=== PATIENT | male | born 1960 | race Caucasian/White ===

== ENCOUNTER 2016-06-03 17:25 | Inpatient (IN) | payer MEDICAID ==
[~2016-06-03] VITALS: Ht 175.3 cm; Wt 84.4 kg
[~2016-06-03 17:25] MED LIST: AMLO10TA2 PO; ASPI81CH43 GT; ENAL-3 PO; GABA300C8 PO; GLIP-115 PO; METF-312 PO; PROPANOLOL PO
[2016-06-03 18:13] LABS: Basophils # (auto) 0.1 uL; Basophils % (auto) 1.5 % (0.0-2.0); DEFINITIVE VIEW TRANSMISSION; Eosinophils # (auto) 0.1 uL; Eosinophils % (auto) 1.6 % (0.0-7.0); Hematocrit 35.6 % (41.0-53.0); Lymphocytes # (auto) 0.7 uL; Lymphocytes % (auto) 8.2 % (10.0-50.0); Mean Corpuscular Hemoglobin 23.7 pg (28.0-32.0); Mean Corpuscular Hgb Conc. 30.8 g/dL (32.0-36.0); Mean Platelet Volume 11.7 fL (7.4-10.4); Monocytes # (auto) 0.9 uL; Monocytes % (auto) 11.6 % (0.0-12.0); Neutrophils # (auto) 6.2 uL; Neutrophils % (auto) 77.1 % (37.0-80.0); Platelet Count (auto) 77 10^3/uL (140-450); SUSPECT VIEW TRANSMISSION; White Blood Cell 8.1 10^3/uL (4.4-10.8)
[2016-06-03 18:25] LABS: Red Cell Distribution Width 25.1 % (11.6-16.0)
[2016-06-03 18:40] LABS: Albumin 2.7 g/dL (3.4-5.0); Alkaline Phosphatase 123 U/L (45-117); Anion Gap 11 (5-15); Aspartate Aminotransferase 38 U/L (15-37); BUN/Creatinine Ratio 19.8; Bilirubin, Total 5.9 mg/dL (0.2-1.0); Blood Urea Nitrogen 16 mg/dL (7-18); Calcium 8.6 mg/dL (8.5-10.1); Carbon Dioxide 21 mmol/L (21-32); Chloride 105 mmol/L (98-107); GFR African American 128 mL/min; GFR Non-African American 106 mL/min; Glucose 273 mg/dL (74-106); Magnesium 2.1 mg/dL (1.6-2.6); Potassium 4.1 mmol/L (3.5-5.1); Sodium 137 mmol/L (136-145); Total Protein 6.9 g/dL (6.4-8.2)
[2016-06-03 19:40] LABS: Anisocytosis Moderate; Hypochromia Moderate; Large Platelets FEW; Microcytosis Slight; Ovalocytes FEW; Platelet Estimate Decreased; Tear Drop Cells FEW
[2016-06-03] MEDS ORDERED: ONDANSETRON HCL 4 MG/2 ML VIAL IV ONE (20:15)
[2016-06-03] MEDS ORDERED: HYDROmorphone HCL 2 MG/ML VL IV ONE (20:15)
[2016-06-03] MEDS ORDERED: DOCUSATE SOD 100 MG CAP PO PRN (21:30)
[2016-06-03] MEDS ORDERED: NITROGLYCERIN 0.4 MG SL TAB SL PRN (21:30)
[2016-06-03] MEDS ORDERED: MORPHINE SULF INJ 2 MG/ML SYRINGE 1ML IV PRN (21:30)
[2016-06-03] MEDS ORDERED: ONDANSETRON HCL 4 MG/2 ML VIAL IV PRN (21:30)
[2016-06-03] MEDS: SODIUM CHLORIDE 0.9% 1,000 ML IV SCH (22:07)
[2016-06-03] MEDS: GABAPENTIN 300 MG CAP PO SCH (22:07)
[2016-06-03] MEDS: ENALAPRIL MALEATE 10 MG TAB PO SCH (22:07)
[2016-06-03] MEDS: PROPRANOLOL HCL 20 MG TAB PO SCH (22:07)
[2016-06-03] MEDS ORDERED: PANTOPRAZOLE SODIUM 40 MG/10 ML VIAL IV ONE (22:30)
[2016-06-03 23:00] VITALS: BP 144/82
[2016-06-04] VITALS (8 sets, daily range): BP systolic 102–149; BP diastolic 59–105
[2016-06-04] MEDS: MORPHINE SULF INJ 2 MG/ML SYRINGE 1ML IV PRN ×4 (03:06→20:26)
[2016-06-04 06:11] LABS: Basophils # (auto) 0.1 uL; Basophils % (auto) 1.1 % (0.0-2.0); DEFINITIVE VIEW TRANSMISSION; Eosinophils # (auto) 0.3 uL; Eosinophils % (auto) 5.3 % (0.0-7.0); Hematocrit 29.1 % (41.0-53.0); Hemoglobin 8.9 g/dL (13.5-17.5); Lymphocytes # (auto) 0.6 uL; Lymphocytes % (auto) 11.2 % (10.0-50.0); Mean Corpuscular Hemoglobin 23.8 pg (28.0-32.0); Mean Corpuscular Hgb Conc. 30.8 g/dL (32.0-36.0); Mean Corpuscular Volume 77.4 fL (80.0-100.0); Mean Platelet Volume 11.2 fL (7.4-10.4); Monocytes # (auto) 0.7 uL; Monocytes % (auto) 13.6 % (0.0-12.0); Neutrophils # (auto) 3.6 uL; Neutrophils % (auto) 68.8 % (37.0-80.0); Platelet Count (auto) 61 10^3/uL (140-450); SUSPECT VIEW TRANSMISSION; White Blood Cell 5.3 10^3/uL (4.4-10.8)
[2016-06-04] MEDS: GABAPENTIN 300 MG CAP PO SCH ×3 (06:12→21:55)
[2016-06-04] MEDS: glipiZIDE 5 MG TAB PO SCH ×2 (06:13→17:45)
[2016-06-04 06:27] LABS: Red Cell Distribution Width 24.4 % (11.6-16.0)
[2016-06-04 06:29] LABS: BUN/Creatinine Ratio 26.6; Calcium 7.3 mg/dL (8.5-10.1)
[2016-06-04 06:32] LABS: Bilirubin, Total 3.6 mg/dL (0.2-1.0); Total Protein 4.9 g/dL (6.4-8.2)
[2016-06-04 06:50] LABS: Anisocytosis Moderate; Platelet Estimate Decreased
[2016-06-04 06:51] LABS: Hypochromia Moderate; Microcytosis Slight; Ovalocytes FEW; Schistocytes FEW
[2016-06-04 09:30] LABS: Urine Bilirubin Negative (Negative); Urine Blood Negative /uL (Negative); Urine Color Yellow (Yellow); Urine Ketone Negative (Negative); Urine Nitrite Negative (Negative); Urine RBC <1 /hpf (0 - 3); Urine Squamous Epithelial Cell FEW /hpf (<5); Urine pH 5.5 (5.0-8.0)
[2016-06-04 09:36] LABS: Urine Glucose 1+ mg/dL (Normal)
[2016-06-04] MEDS: ASPirin 81 mg TAB PO SCH (10:58)
[2016-06-04] MEDS: PROPRANOLOL HCL 20 MG TAB PO SCH ×2 (10:58→21:55)
[2016-06-04] MEDS: ENALAPRIL MALEATE 10 MG TAB PO SCH ×2 (10:59→22:00)
[2016-06-04] MEDS: metFORMIN HYDROCHLORIDE 500 MG TAB PO SCH ×2 (11:00→18:59)
[2016-06-04] MEDS: HYDROcodone-ACET 5/325MG TAB PO PRN ×2 (11:00→21:55)
[2016-06-04] MEDS: PANTOPRAZOLE SODIUM 40 MG/10 ML VIAL IV SCH (11:02)
[2016-06-04] MEDS: amLODIPine BESYLATE 5 MG TAB PO SCH (11:02)
[2016-06-04] MEDS ORDERED: FUROSEMIDE 20 MG TAB PO ONE (14:45)
[2016-06-04] MEDS: SODIUM CHLORIDE 0.9% 1,000 ML IV SCH (16:50)
[2016-06-04 17:08] LABS: Partial Thromboplastin Time 30.2 sec (22.64-33.71)
[2016-06-04 17:10] LABS: INR 1.24 (0.9-1.15); Prothrombin Time 13.4 sec (9.37-12.3)
[2016-06-04] MEDS: SPIRONOLACTONE 25 MG TAB PO SCH (18:59)
[2016-06-05 04:56] VITALS: BP 105/61
[2016-06-05] MEDS: MORPHINE SULF INJ 2 MG/ML SYRINGE 1ML IV PRN ×4 (05:10→21:59)
[2016-06-05] MEDS: GABAPENTIN 300 MG CAP PO SCH ×3 (06:10→21:59)
[2016-06-05] MEDS: SODIUM CHLORIDE 0.9% 1,000 ML IV SCH ×2 (06:10→23:23)
[2016-06-05] MEDS: SPIRONOLACTONE 25 MG TAB PO SCH ×2 (06:10→17:36)
[2016-06-05] MEDS: glipiZIDE 5 MG TAB PO SCH ×2 (06:22→17:40)
[2016-06-05 08:00] VITALS: BP 97/63
[2016-06-05 09:00] VITALS: BP 97/63
[2016-06-05] MEDS: amLODIPine BESYLATE 5 MG TAB PO SCH (10:00)
[2016-06-05] MEDS ORDERED: FUROSEMIDE 20 MG TAB PO SCH (10:00)
[2016-06-05] MEDS: PROPRANOLOL HCL 20 MG TAB PO SCH ×2 (10:00→22:00)
[2016-06-05] MEDS: ENALAPRIL MALEATE 10 MG TAB PO SCH ×2 (10:00→22:00)
[2016-06-05] MEDS: PANTOPRAZOLE SODIUM 40 MG/10 ML VIAL IV SCH (10:13)
[2016-06-05] MEDS: FUROSEMIDE 40 MG TAB PO SCH (10:14)
[2016-06-05] MEDS: metFORMIN HYDROCHLORIDE 500 MG TAB PO SCH ×2 (10:14→17:40)
[2016-06-05] MEDS: ASPirin 81 mg TAB PO SCH (10:15)
[2016-06-05 13:00] VITALS: BP 110/71
[2016-06-05] MEDS: LOPERAMIDE HCL 2 MG CAP PO SCH (14:53)
[2016-06-05 16:21] VITALS: BP 102/64
[2016-06-05 18:20] LABS: BUN/Creatinine Ratio 22.4; Potassium 4.3 mmol/L (3.5-5.1)
[2016-06-05 18:27] LABS: Basophils # (auto) 0 uL; Basophils % (auto) 0.4 % (0.0-2.0); DEFINITIVE VIEW TRANSMISSION; Eosinophils # (auto) 0.2 uL; Eosinophils % (auto) 2.6 % (0.0-7.0); Hematocrit 32.8 % (41.0-53.0); Hemoglobin 10.1 g/dL (13.5-17.5); Lymphocytes # (auto) 0.6 uL; Lymphocytes % (auto) 7.4 % (10.0-50.0); Mean Corpuscular Hemoglobin 23.5 pg (28.0-32.0); Mean Corpuscular Volume 75.9 fL (80.0-100.0); Mean Platelet Volume 11.2 fL (7.4-10.4); Monocytes # (auto) 0.9 uL; Neutrophils # (auto) 5.9 uL; Neutrophils % (auto) 77.6 % (37.0-80.0); Platelet Count (auto) 77 10^3/uL (140-450); SUSPECT VIEW TRANSMISSION; White Blood Cell 7.6 10^3/uL (4.4-10.8)
[2016-06-05 18:28] LABS: Red Cell Distribution Width 24.1 % (11.6-16.0)
[2016-06-05 19:52] LABS: Anisocytosis Moderate; Hypochromia Moderate; Microcytosis Slight; Platelet Estimate Decreased
[2016-06-05 19:53] LABS: Ovalocytes FEW; Tear Drop Cells FEW
[2016-06-05 21:30] VITALS: BP 105/65
[2016-06-06] MEDS: MORPHINE SULF INJ 2 MG/ML SYRINGE 1ML IV PRN ×3 (04:43→22:14)
[2016-06-06 05:00] VITALS: BP 110/70
[2016-06-06] MEDS: SPIRONOLACTONE 25 MG TAB PO SCH ×2 (06:42→17:27)
[2016-06-06] MEDS: GABAPENTIN 300 MG CAP PO SCH ×3 (06:42→22:08)
[2016-06-06] MEDS: glipiZIDE 5 MG TAB PO SCH ×2 (06:48→17:27)
[2016-06-06 07:48] LABS: Albumin 1.9 g/dL (3.4-5.0); BUN/Creatinine Ratio 17.2; Bilirubin, Total 3.3 mg/dL (0.2-1.0); Calcium 7.7 mg/dL (8.5-10.1); Potassium 4.1 mmol/L (3.5-5.1); Total Protein 4.9 g/dL (6.4-8.2)
[2016-06-06 08:00] VITALS: BP 134/75
[2016-06-06 08:34] VITALS: BP 134/75
[2016-06-06] MEDS: metFORMIN HYDROCHLORIDE 500 MG TAB PO SCH ×2 (08:47→17:27)
[2016-06-06] MEDS: PANTOPRAZOLE 40 MG TAB PO SCH (09:58)
[2016-06-06] MEDS: ASPirin 81 mg TAB PO SCH (09:58)
[2016-06-06] MEDS: ENALAPRIL MALEATE 10 MG TAB PO SCH ×2 (09:59→22:00)
[2016-06-06] MEDS: FUROSEMIDE 40 MG TAB PO SCH (09:59)
[2016-06-06] MEDS: PROPRANOLOL HCL 20 MG TAB PO SCH ×2 (10:00→22:00)
[2016-06-06] MEDS: amLODIPine BESYLATE 5 MG TAB PO SCH (10:00)
[2016-06-06] MEDS: SODIUM CHLORIDE 0.9% 1,000 ML IV SCH (10:00)
[2016-06-06] MEDS: LOPERAMIDE HCL 2 MG CAP PO SCH (10:01)
[2016-06-06 13:20] VITALS: BP 114/61
[2016-06-06 16:32] VITALS: BP 102/60
[2016-06-06 21:46] VITALS: BP 96/66
[2016-06-07] MEDS: MORPHINE SULF INJ 2 MG/ML SYRINGE 1ML IV PRN ×2 (04:29→19:17)
[2016-06-07 04:46] VITALS: BP 110/50
[2016-06-07] MEDS: SPIRONOLACTONE 25 MG TAB PO SCH ×2 (06:33→17:40)
[2016-06-07] MEDS: GABAPENTIN 300 MG CAP PO SCH ×3 (06:33→22:17)
[2016-06-07] MEDS: glipiZIDE 5 MG TAB PO SCH ×2 (06:33→17:40)
[2016-06-07] MEDS: SODIUM CHLORIDE 0.9% 1,000 ML IV SCH (08:43)
[2016-06-07 09:00] VITALS: BP 82/43
[2016-06-07] MEDS: PROPRANOLOL HCL 20 MG TAB PO SCH ×2 (10:00→22:17)
[2016-06-07] MEDS: PANTOPRAZOLE 40 MG TAB PO SCH (10:18)
[2016-06-07] MEDS: ENALAPRIL MALEATE 10 MG TAB PO SCH ×2 (10:18→22:17)
[2016-06-07] MEDS: ASPirin 81 mg TAB PO SCH (10:18)
[2016-06-07] MEDS: FUROSEMIDE 40 MG TAB PO SCH (10:18)
[2016-06-07] MEDS: amLODIPine BESYLATE 5 MG TAB PO SCH (10:19)
[2016-06-07] MEDS: metFORMIN HYDROCHLORIDE 500 MG TAB PO SCH ×2 (10:19→17:43)
[2016-06-07 13:00] VITALS: BP 119/69
[2016-06-07] MEDS: HYDROcodone-ACET 5/325MG TAB PO PRN (15:06)
[2016-06-07 17:00] VITALS: BP 92/46
[2016-06-07 20:00] VITALS: BP 108/68
[2016-06-07 22:00] VITALS: BP 108/68
[2016-06-08] MEDS: SODIUM CHLORIDE 0.9% 1,000 ML IV SCH ×2 (00:53→18:03)
[2016-06-08 05:00] VITALS: BP 102/57
[2016-06-08] MEDS: GABAPENTIN 300 MG CAP PO SCH ×3 (06:23→22:20)
[2016-06-08] MEDS: SPIRONOLACTONE 25 MG TAB PO SCH ×2 (06:23→18:03)
[2016-06-08] MEDS: glipiZIDE 5 MG TAB PO SCH ×2 (06:36→18:04)
[2016-06-08] MEDS: MORPHINE SULF INJ 2 MG/ML SYRINGE 1ML IV PRN ×4 (06:45→22:20)
[2016-06-08 09:00] VITALS: BP 134/78
[2016-06-08] MEDS: PANTOPRAZOLE 40 MG TAB PO SCH (09:32)
[2016-06-08] MEDS: FUROSEMIDE 40 MG TAB PO SCH (09:32)
[2016-06-08] MEDS: ASPirin 81 mg TAB PO SCH (09:32)
[2016-06-08] MEDS: metFORMIN HYDROCHLORIDE 500 MG TAB PO SCH ×2 (09:32→18:03)
[2016-06-08] MEDS: ENALAPRIL MALEATE 10 MG TAB PO SCH ×2 (09:33→22:21)
[2016-06-08] MEDS: amLODIPine BESYLATE 5 MG TAB PO SCH (09:33)
[2016-06-08] MEDS: PROPRANOLOL HCL 20 MG TAB PO SCH ×2 (09:34→22:20)
[2016-06-08 13:00] VITALS: BP 101/68
[2016-06-08] MEDS ORDERED: DOCUSATE SOD 100 MG CAP PO PRN (15:30)
[2016-06-08] MEDS: HYDROcodone-ACET 5/325MG TAB PO PRN ×2 (15:32→20:50)
[2016-06-08 17:00] VITALS: BP 102/69
[2016-06-08 20:00] VITALS: BP 124/70
[2016-06-08 22:00] VITALS: BP 124/70
[2016-06-09] VITALS (7 sets, daily range): BP systolic 89–126; BP diastolic 42–76
[2016-06-09] MEDS: MORPHINE SULF INJ 2 MG/ML SYRINGE 1ML IV PRN ×4 (03:08→21:01)
[2016-06-09] MEDS: SPIRONOLACTONE 25 MG TAB PO SCH ×2 (06:44→17:59)
[2016-06-09] MEDS: GABAPENTIN 300 MG CAP PO SCH ×3 (06:45→22:19)
[2016-06-09] MEDS: glipiZIDE 5 MG TAB PO SCH ×2 (06:45→17:59)
[2016-06-09] MEDS: PANTOPRAZOLE 40 MG TAB PO SCH (09:12)
[2016-06-09] MEDS: FUROSEMIDE 40 MG TAB PO SCH (09:12)
[2016-06-09] MEDS: ENALAPRIL MALEATE 10 MG TAB PO SCH ×2 (09:12→22:19)
[2016-06-09] MEDS: ASPirin 81 mg TAB PO SCH (09:13)
[2016-06-09] MEDS: metFORMIN HYDROCHLORIDE 500 MG TAB PO SCH ×2 (09:13→17:58)
[2016-06-09] MEDS: amLODIPine BESYLATE 5 MG TAB PO SCH (09:13)
[2016-06-09] MEDS: PROPRANOLOL HCL 20 MG TAB PO SCH ×2 (10:00→22:19)
[2016-06-09] MEDS: SODIUM CHLORIDE 0.9% 1,000 ML IV SCH (10:43)
[2016-06-10] MEDS: SODIUM CHLORIDE 0.9% 1,000 ML IV SCH ×2 (02:57→20:33)
[2016-06-10] MEDS: MORPHINE SULF INJ 2 MG/ML SYRINGE 1ML IV PRN ×3 (04:43→20:43)
[2016-06-10 05:10] VITALS: BP 99/66
[2016-06-10] MEDS: SPIRONOLACTONE 25 MG TAB PO SCH ×2 (06:25→17:51)
[2016-06-10] MEDS: GABAPENTIN 300 MG CAP PO SCH ×3 (06:25→21:47)
[2016-06-10] MEDS: glipiZIDE 5 MG TAB PO SCH ×2 (06:27→17:51)
[2016-06-10 07:54] LABS: INR 1.19 (0.9-1.15); Prothrombin Time 12.8 sec (9.37-12.3)
[2016-06-10] MEDS: metFORMIN HYDROCHLORIDE 500 MG TAB PO SCH ×2 (08:13→17:51)
[2016-06-10 08:32] VITALS: BP 101/52
[2016-06-10] MEDS: PROPRANOLOL HCL 20 MG TAB PO SCH ×2 (10:00→21:46)
[2016-06-10] MEDS: FUROSEMIDE 40 MG TAB PO SCH (10:00)
[2016-06-10] MEDS: ENALAPRIL MALEATE 10 MG TAB PO SCH ×2 (10:00→21:47)
[2016-06-10] MEDS: amLODIPine BESYLATE 5 MG TAB PO SCH (10:00)
[2016-06-10] MEDS: ASPirin 81 mg TAB PO SCH (10:30)
[2016-06-10] MEDS: PANTOPRAZOLE 40 MG TAB PO SCH (10:30)
[2016-06-10 12:46] VITALS: BP 113/67
[2016-06-10 16:54] VITALS: BP 147/88
[2016-06-10 22:00] VITALS: BP 107/61
[2016-06-11] MEDS: MORPHINE SULF INJ 2 MG/ML SYRINGE 1ML IV PRN ×4 (03:18→20:19)
[2016-06-11 05:54] VITALS: BP 102/68
[2016-06-11] MEDS: GABAPENTIN 300 MG CAP PO SCH ×3 (06:01→21:28)
[2016-06-11] MEDS: SPIRONOLACTONE 25 MG TAB PO SCH ×2 (06:01→17:53)
[2016-06-11] MEDS: glipiZIDE 5 MG TAB PO SCH ×2 (06:38→17:53)
[2016-06-11 08:47] VITALS: BP 140/76
[2016-06-11] MEDS: metFORMIN HYDROCHLORIDE 500 MG TAB PO SCH ×2 (09:14→17:53)
[2016-06-11] MEDS: PANTOPRAZOLE 40 MG TAB PO SCH (09:15)
[2016-06-11] MEDS: ASPirin 81 mg TAB PO SCH (09:15)
[2016-06-11] MEDS: FUROSEMIDE 40 MG TAB PO SCH (09:16)
[2016-06-11] MEDS: PROPRANOLOL HCL 20 MG TAB PO SCH ×2 (09:16→21:28)
[2016-06-11] MEDS: ENALAPRIL MALEATE 10 MG TAB PO SCH ×2 (09:16→21:29)
[2016-06-11] MEDS: amLODIPine BESYLATE 5 MG TAB PO SCH (09:17)
[2016-06-11] MEDS: SODIUM CHLORIDE 0.9% 1,000 ML IV SCH (12:43)
[2016-06-11 13:00] VITALS: BP 119/71
[2016-06-11 17:00] VITALS: BP 104/70
[2016-06-11 21:02] VITALS: BP 113/69
[2016-06-12] MEDS: MORPHINE SULF INJ 2 MG/ML SYRINGE 1ML IV PRN ×4 (01:27→16:52)
[2016-06-12] MEDS: SODIUM CHLORIDE 0.9% 1,000 ML IV SCH ×2 (05:23→22:03)
[2016-06-12 05:40] VITALS: BP 107/58
[2016-06-12] MEDS: SPIRONOLACTONE 25 MG TAB PO SCH ×2 (05:54→17:01)
[2016-06-12] MEDS: GABAPENTIN 300 MG CAP PO SCH ×3 (05:54→22:30)
[2016-06-12] MEDS: glipiZIDE 5 MG TAB PO SCH ×2 (06:03→17:02)
[2016-06-12] MEDS: PANTOPRAZOLE 40 MG TAB PO SCH (08:50)
[2016-06-12] MEDS: ASPirin 81 mg TAB PO SCH (08:50)
[2016-06-12] MEDS: metFORMIN HYDROCHLORIDE 500 MG TAB PO SCH ×2 (08:50→17:02)
[2016-06-12] MEDS: PROPRANOLOL HCL 20 MG TAB PO SCH ×2 (08:51→22:30)
[2016-06-12] MEDS: FUROSEMIDE 40 MG TAB PO SCH (08:51)
[2016-06-12] MEDS: ENALAPRIL MALEATE 10 MG TAB PO SCH ×2 (08:51→22:30)
[2016-06-12] MEDS: amLODIPine BESYLATE 5 MG TAB PO SCH (08:52)
[2016-06-12 09:00] VITALS: BP 114/71
[2016-06-12 13:00] VITALS: BP 111/73
[2016-06-12 17:00] VITALS: BP 102/62
[2016-06-12] MEDS: PRO-STAT 64 30ML PO SCH (18:00)
[2016-06-12 22:00] VITALS: BP 106/62
[2016-06-13] MEDS: MORPHINE SULF INJ 2 MG/ML SYRINGE 1ML IV PRN ×5 (00:29→20:29)
[2016-06-13 05:00] VITALS: BP 104/62
[2016-06-13] MEDS: GABAPENTIN 300 MG CAP PO SCH ×3 (06:12→21:54)
[2016-06-13] MEDS: SPIRONOLACTONE 25 MG TAB PO SCH ×2 (06:12→17:31)
[2016-06-13] MEDS: glipiZIDE 5 MG TAB PO SCH ×2 (06:29→17:31)
[2016-06-13] MEDS: metFORMIN HYDROCHLORIDE 500 MG TAB PO SCH ×2 (08:19→17:32)
[2016-06-13] MEDS: PRO-STAT 64 30ML PO SCH ×2 (08:19→18:00)
[2016-06-13 08:43] VITALS: BP 139/82
[2016-06-13] MEDS: amLODIPine BESYLATE 5 MG TAB PO SCH (09:55)
[2016-06-13] MEDS: ENALAPRIL MALEATE 10 MG TAB PO SCH ×2 (09:56→21:55)
[2016-06-13] MEDS: ASPirin 81 mg TAB PO SCH (09:56)
[2016-06-13] MEDS: FUROSEMIDE 40 MG TAB PO SCH (09:56)
[2016-06-13] MEDS: PANTOPRAZOLE 40 MG TAB PO SCH (09:56)
[2016-06-13] MEDS: PROPRANOLOL HCL 20 MG TAB PO SCH ×2 (09:57→21:56)
[2016-06-13 13:48] VITALS: BP 130/54
[2016-06-13] MEDS: SODIUM CHLORIDE 0.9% 1,000 ML IV SCH (14:43)
[2016-06-13 15:54] VITALS: BP 88/42
[2016-06-13 22:00] VITALS: BP 105/63
[2016-06-14] MEDS: MORPHINE SULF INJ 2 MG/ML SYRINGE 1ML IV PRN ×3 (01:33→12:10)
[2016-06-14 05:00] VITALS: BP 93/49
[2016-06-14] MEDS: GABAPENTIN 300 MG CAP PO SCH (05:51)
[2016-06-14] MEDS: SPIRONOLACTONE 25 MG TAB PO SCH (05:51)
[2016-06-14] MEDS: glipiZIDE 5 MG TAB PO SCH (06:52)
[2016-06-14] MEDS: SODIUM CHLORIDE 0.9% 1,000 ML IV SCH (07:20)
[2016-06-14] MEDS: metFORMIN HYDROCHLORIDE 500 MG TAB PO SCH (08:05)
[2016-06-14] MEDS: PRO-STAT 64 30ML PO SCH (08:05)
[2016-06-14 09:00] VITALS: BP 105/66
[2016-06-14] MEDS: PROPRANOLOL HCL 20 MG TAB PO SCH (10:00)
[2016-06-14] MEDS: ENALAPRIL MALEATE 10 MG TAB PO SCH (10:00)
[2016-06-14] MEDS: amLODIPine BESYLATE 5 MG TAB PO SCH (10:00)
[2016-06-14] MEDS: FUROSEMIDE 40 MG TAB PO SCH (10:00)
[2016-06-14] MEDS: PANTOPRAZOLE 40 MG TAB PO SCH (10:03)
[2016-06-14] MEDS: ASPirin 81 mg TAB PO SCH (10:03)
[2016-06-14 13:00] VITALS: BP 117/65
[2016-06-14 14:49] VITALS: BP 116/66
== END 2016-06-14 15:57 | disposition home or self-care (01) | DRG 206 ==
LOC: ER 17:25 → TELE 17:26 → TELE-CENTR 22:22
PROVIDERS: ADMIT Emergency Medicine; ATTEND Internal Medicine Pulmonary Disease
PROC: 4B02XTZ Measurement of Cardiac Defibrillator, External Approach (ICD-10-PCS; principal; 2016-06-03)
DX: T82.119A Breakdown (mechanical) of unspecified cardiac electronic device, initial encounter (principal); E43 Unspecified severe protein-calorie malnutrition; K76.6 Portal hypertension; I85.00 Esophageal varices without bleeding; K70.31 Alcoholic cirrhosis of liver with ascites; I11.9 Hypertensive heart disease without heart failure; J44.9 Chronic obstructive pulmonary disease, unspecified; K80.20 Calculus of gallbladder without cholecystitis without obstruction; K52.9 Noninfective gastroenteritis and colitis, unspecified; E11.9 Type 2 diabetes mellitus without complications; K52.89 Other specified noninfective gastroenteritis and colitis; B19.20 Unspecified viral hepatitis C without hepatic coma; B34.9 Viral infection, unspecified; F17.210 Nicotine dependence, cigarettes, uncomplicated; G40.909 Epilepsy, unspecified, not intractable, without status epilepticus; I25.10 Atherosclerotic heart disease of native coronary artery without angina pectoris; I86.8 Varicose veins of other specified sites; K40.20 Bilateral inguinal hernia, without obstruction or gangrene, not specified as recurrent; K57.30 Diverticulosis of large intestine without perforation or abscess without bleeding; M47.814 Spondylosis without myelopathy or radiculopathy, thoracic region; Z59.0 Homelessness; Z80.1 Family history of malignant neoplasm of trachea, bronchus and lung; Z82.5 Family history of asthma and other chronic lower respiratory diseases; Z85.038 Personal history of other malignant neoplasm of large intestine; Z85.118 Personal history of other malignant neoplasm of bronchus and lung; Z87.11 Personal history of peptic ulcer disease; F32.9 Major depressive disorder, single episode, unspecified; Z68.27 Body mass index [BMI] 27.0-27.9, adult; Z86.2 Personal history of diseases of the blood and blood-forming organs and certain disorders involving the immune mechanism; Z79.82 Long term (current) use of aspirin; Z95.810 Presence of automatic (implantable) cardiac defibrillator
CPT/HCPCS: 36415; 71010; 74176; 80048; 80053; 81001; 82140; 82962; 83690; 83735; 84484; 85025; 85610; 85730; 87045; 87081; 87493; 87899; 93005; 93970; 94761; 96374; 96375; 97001; C9113; J2405